=== PATIENT | male | born 1995 | race Caucasian/White ===

== ENCOUNTER 2017-10-21 21:51 | Emergency (ER) | payer SELFPAY ==
[2017-10-21 23:26] LABS: #Eosinphils 0.2 thou/uL (0.0-0.7); #Lymphocytes 1.7 thou/uL (1.20-3.40); #Monocytes 0.7 thou/uL (0.11-0.59); #Neutrophils 9.1 thou/uL (1.40-6.50); %Basophils 0.3 % (0.0-1.0); %Eosinophils 1.6 % (0.0-10.0); %Lymphocytes 14.5 % (28.0-48.0); %Monocytes 5.7 % (0.0-4.0); Hemoglobin 14.7 g/dL (14.0-18.0); Mean Corpuscular HGB CONC 34.7 g/dL (32.0-36.0); Mean Corpuscular Volume 95.1 fl (77.0-87.0); Mean Platelet Volume 6.7 fL (7.4-10.4); Platelet Count 262 thou/uL (130-400); RBC Distribution Width 10.6 % (11.5-14.5); Red Blood Cell (RBC) Count 4.45 mill/uL (4.00-5.20); White Blood Cell (WBC) Count 11.6 thou/uL (4.8-10.8)
--- NOTE | 2017-10-21 23:45 | RAD ---
PA AND LATERAL CHEST: Indication: Cough. Comparison: 03-24-12 FINDINGS: The lungs are clear. Cardiomediastinal silhouette is within normal limits. There is mild thoracolumba r scoliosis. No acute osseous abnormality is evident. IMPRESSION: No acute cardiopulmonary abnormalities. POS: [facility]
[2017-10-21 23:53] LABS: ALT (SGPT) 20 U/L (8-55); AST (SGOT) 17 U/L (5-34); Albumin 4.8 g/dL (3.5-5.0); Alkaline Phosphatase 91 U/L (Less than 750); Anion Gap 15 mmol/L (10-20); BUN (Urea Nitrogen) 14 mg/dL (8.9-20.6); Bilirubin, Total 0.6 mg/dL (0.2-1.2); CKMB 0.7 ng/mL (0-6.6); Calc. Creatinine Clearance 0 mL/min (70-130); Calcium 10.5 mg/dL (7.8-10.44); Carbon Dioxide 25 mmol/L (22-29); Chloride 104 mmol/L (98-107); Estimated GFR-MDRD Greater than 90; Globulin 3.9 g/dL (2.4-3.5); Glucose 96 mg/dL (70-105); Potassium 3.8 mmol/L (3.5-5.1); Protein, Total 8.7 g/dL (6.0-8.3); Sodium 140 mmol/L (136-145); Troponin I Less than 0.010 ng/mL (< 0.028)
--- NOTE | 2017-10-26 15:37 | EKG ---
Test Reason : Blood Pressure : / mmHG Vent. Rate : 109 BPM Atrial Rate : 109 BPM P-R Int : 126 ms QRS Dur : 086 ms QT Int : 324 ms P-R-T Axes : 070 051 004 degrees QTc Int : 436 ms Sinus tachycardia Otherwise normal ECG Confirmed by GURVINDER BELLE, DEION ([id number]), non linear editor VERONICA WANG ([id number]) on 10/26/2017 3:37:15 PM Referred By: Confirmed By:DEION HOLLINS MD
== END 2017-10-22 00:19 | disposition home or self-care (01) ==
LOC: ERS 21:51
DX: R07.89 Other chest pain (principal); R05 Cough; F41.9 Anxiety disorder, unspecified; F31.9 Bipolar disorder, unspecified
CPT/HCPCS: 36415; 71046; 80053; 82553; 84484; 85025; 87804; 93005; 96360